=== PATIENT | female | born 1975 | race Caucasian/White ===

== ENCOUNTER 2024-06-23 15:57 | Emergency (ER) | payer MEDICAID ==
[~2024-06-23] VITALS: Ht 175.3 cm; Wt 59.0 kg
[2024-06-23] MEDS: KETOROLAC TROMETHAMINE 15 MG/ML VIAL IV ONE (16:30)
[2024-06-23] MEDS: IV NS 0.9% 1,000 ML BAG IV ONE (16:47)
[2024-06-23] MEDS ORDERED: CYCLOBENZAPRINE 10 MG TABLET ONE (16:49)
[2024-06-23] MEDS ORDERED: ONDANSETRON HCL/PF 4 MG/2 ML VIAL ONE (16:49)
[2024-06-23] MEDS ORDERED: FAMOTIDINE/PF INJ 20 MG/2 ML VIAL IV ONE (16:49)
[2024-06-23 16:57] LABS: BASOPHILS # (AUTO) 0.1 K/uL (0.0-0.2); BASOPHILS % (AUTO) 1.4 % (0.0-2.0); EOSINOPHILS # (AUTO) 0.2 K/uL (0.0-0.7); EOSINOPHILS % (AUTO) 3.8 % (0.0-6.0); HEMATOCRIT 43 % (33-45); HEMOGLOBIN 14.8 g/dL (11.5-14.8); LYMPHOCYTES # (AUTO) 2.2 K/uL (0.8-4.8); LYMPHOCYTES % (AUTO) 38.1 % (20.0-44.0); MEAN CORPUSCULAR HEMOGLOBIN 32 PG (26.0-33.0); MEAN CORPUSCULAR HGB CONC 34 g/dl (31.0-36.0); MEAN CORPUSCULAR VOLUME 92 fL (82-100); MONOCYTES # (AUTO) 0.4 K/uL (0.1-1.30); MONOCYTES % (AUTO) 7.3 % (2.0-12.0); NEUTROPHILS # (AUTO) 2.9 K/uL (1.8-8.9); NEUTROPHILS % (AUTO) 49.4 % (43.0-81.0); PLATELET COUNT (AUTO) 250 K/uL (150-450); RED BLOOD CELL COUNT(AUTO) 4.69 MIL/uL (4.0-5.2); RED CELL DISTRIBUTION WIDTH 14.7 % (11.5-15.0); WHITE BLOOD COUNT (AUTO) 5.9 K/uL (4.3-11.0)
[2024-06-23] MEDS: FAMOTIDINE/PF INJ 20 MG/2 ML VIAL IV ONE (16:57)
[2024-06-23] MEDS: CYCLOBENZAPRINE 10 MG TABLET PO ONE (16:57)
[2024-06-23] MEDS: ONDANSETRON HCL/PF 4 MG/2 ML VIAL IVP ONE (16:57)
[2024-06-23 17:15] LABS: ALANINE AMINOTRANSFERASE 20 U/L (12-78); ALBUMIN 4.5 g/dL (3.4-5.0); ALKALINE PHOSPHATASE 97 U/L (46-116); ASPARTATE AMINOTRANSFERASE 12 U/L (15-37); BILIRUBIN,DIRECT 0.1 mg/dL (0.0-0.2); BILIRUBIN,TOTAL 0.3 mg/dL (0.2-1.0); CALCIUM, SERUM 9.6 mg/dL (8.5-10.1); CARBON DIOXIDE 25 mmol/L (21-32); CHLORIDE 103 mmol/L (98-107); CREATININE 0.6 mg/dL (0.6-1.3); GLUCOSE 101 mg/dL (74-106); LIPASE 94 U/L (16-77); POTASSIUM 3.7 mmol/L (3.5-5.1); SODIUM SERUM 141 mmol/L (136-145); TOTAL PROTEIN, SERUM 8.1 g/dL (6.4-8.2); UREA NITROGEN, BLOOD 15 mg/dL (7-18)
[2024-06-23 17:18] LABS: MAGNESIUM 2.3 mg/dL (1.8-2.4)
[2024-06-23 17:37] LABS: APPEARANCE,URINE CLEAR (CLEAR); BILIRUBIN,URINE NEGATIVE (NEGATIVE); BLOOD, URINE NEGATIVE Ery/uL (NEGATIVE); COLOR,URINE YELLOW (YELLOW); KETONES,URINE 1+ mg/dL (NEGATIVE); LEUKOCYTE ESTERASE ,URINE NEGATIVE (NEGATIVE); NITRITE, URINE NEGATIVE (NEGATIVE); PROTEIN,URINE NEGATIVE (NEGATIVE); UGLUCOSE NEGATIVE (NEGATIVE); UROBILINOGEN,URINE 0.2 EU/dL (0.2)
[2024-06-23 17:38] LABS: PREGNANCY TEST URINE QUAL NEGATIVE (NEGATIVE)
[2024-06-23] MEDS ORDERED: KETOROLAC TROMETHAMINE 15 MG/ML VIAL ONE (17:40)
[2024-06-23 17:44] LABS: RBC,URINE 0-2 /HPF (0-2)
[2024-06-23 17:45] LABS: ADD URINE CULTURE NO; BACTERIA,URINE None seen /HPF (None Seen); MUCUS,URINE Few /LPF (None Seen)
[2024-06-23] MEDS ORDERED: ONDA4TAB5 PO (18:10)
[2024-06-23 18:19] VITALS: BP 118/77; TEMP 97.9; O2SAT 98
== END 2024-06-23 18:19 | disposition home or self-care (01) ==
LOC: ER 16:27
DX: R11.2 Nausea with vomiting, unspecified (principal); R19.7 Diarrhea, unspecified
CPT/HCPCS: 99285; 96374; 96375; 71045; 96361; 93005; 85025; 80048; 82550; 87086; 83690; 80076; 83735; 84703; 81001; 36415; 84484; 82962; 84702; J3490; J2405; J7030; J1885

== ENCOUNTER 2025-08-11 00:09 | Emergency (ER) | payer MEDICAID, OTHER ==
[~2025-08-11] VITALS: Ht 170.2 cm; Wt 66.7 kg
[~2025-08-11 00:09] MED LIST: ONDA4TAB5 PO
[2025-08-11] MEDS ORDERED: IBUPROFEN 400 MG TABLET ONE (00:22)
[2025-08-11] MEDS ORDERED: IBUPROFEN 600 MG TABLET ONE (00:25)
[2025-08-11] MEDS ORDERED: IBUPROFEN 200 MG TABLET ONE (00:25)
[2025-08-11] MEDS: IBUPROFEN 400 MG TABLET PO ONE (00:32)
[2025-08-11 00:56] LABS: PREGNANCY TEST URINE QUAL NEGATIVE (NEGATIVE)
[2025-08-11 01:27] VITALS: BP 124/75; TEMP 98.6; O2SAT 96
== END 2025-08-11 01:28 | disposition home or self-care (01) ==
LOC: ER 00:10
DX: S80.12XA Contusion of left lower leg, initial encounter (principal); Z60.2 Problems related to living alone; V89.2XXA Person injured in unspecified motor-vehicle accident, traffic, initial encounter; Y93.89 Activity, other specified; Y92.410 Unspecified street and highway as the place of occurrence of the external cause; Y99.8 Other external cause status
CPT/HCPCS: 73590-TC; 84703-TC